=== PATIENT | male | born 2005 | race Hispanic/Latino ===

== ENCOUNTER 2024-05-24 08:50 | Emergency (ER) | payer SELFPAY ==
[2024-05-24] VITALS (8 sets, daily range): BP systolic 109–147; BP diastolic 61–87
[~2024-05-24] VITALS: Ht 170.2 cm; Wt 64.0 kg
[2024-05-24] MEDS ORDERED: SODIUM CHLORIDE 0.9% 1,000 ML IV ONE (09:35)
[2024-05-24 09:40] LABS: BASO% 0.4 % (0-3); EOS% 1.2 % (0-8); HEMATOCRIT 37.9 % (39.0-50.0); HEMOGLOBIN 12.5 g/dl (14.0-18.0); IMMATURE GRANULOCYTES 0.3 % (0.0-5.0); LYMPH% 22.7 % (15-41); MEAN CELL VOLUME 76.9 fL CALC (80.0-100.0); MEAN CORPUSCULAR HGB 25.4 pG CALC (26.0-32.0); MONO% 8.6 % (2-13); NEUT# 6.54 thou/uL (1.82-7.42); NEUT% 66.8 % (42-76); RED BLOOD COUNT 4.93 mill/uL (4.70-6.10); RED CELL DISTRI WIDTH 15.5 % (11.5-15.5)
[2024-05-24 09:46] LABS: ALBUMIN 3.9 g/dL (3.2-5.0); ALKALINE PHOSPHATASE 184 u/l (38-126); ANION GAP 10 (6-22 (CALC)); BILIRUBIN, TOTAL 1.4 mg/dL (0.2-1.3); BUN 8 mg/dL (9-20); BUN/CREATININE RATIO 11 (12-20 (CALC)); CARBON DIOXIDE 25 mmol/l (22-30); CHLORIDE 104 mmol/l (95-108); CREATININE 0.7 mg/dL (0.7-1.3); ESTIMATED GFR 135 ML/MIN (>=90 (CALC)); POTASSIUM 3.5 mmol/l (3.5-5.1); SGOT/AST 60 u/l (17-59); SODIUM 135 mmol/l (137-146)
[2024-05-24 09:50] LABS: CPK 127 u/l (55-170)
[2024-05-24] MEDS ORDERED: ZPAK PO (10:40)
== END 2024-05-24 11:12 | disposition home or self-care (01) | DRG 177 ==
LOC: ED 08:50
PROVIDERS: Family Medicine
DX: U07.1 COVID-19 (principal); J12.82 Pneumonia due to coronavirus disease 2019